=== PATIENT | male | born 1950 | race Caucasian/White ===

== ENCOUNTER 2017-03-25 15:44 | Emergency (ER) | payer OTHER, MEDICARE ==
[~2017-03-25] VITALS: Ht 182.9 cm; Wt 92.0 kg
[~2017-03-25 15:44] MED LIST: ASCORBIC ACID100 MG PO; B COMPLEX #11 EACH PO; FISH OIL500 MG PO; GLUCOSAMINE CH1 EAC2 PO; MAGNESIUM250 MG PO; NAPROSYN500 MG PO; ULTRAM50 MG PO
[2017-03-25 18:14] LABS: HEMATOCRIT 38.4 % (38.0-50.0); MCH 26.1 PG (29.0-34.0); MCHC 31.8 G/DL (30.0-36.0); MCV 82.1 FL (86-99); PLATELET COUNT 250 K/uL (156-360); RBC DIS.WIDTH-CV 14.7 % (11.8-14.6); RBC DIS.WIDTH-SD 44.4 % (39-53); RED BLOOD COUNT 4.68 M/uL (4.00-5.50); WHITE BLOOD COUNT 7.6 K/uL (4.1-10.2)
[2017-03-25 18:21] LABS: INTER. NORMALIZED RATIO 2.4; PROTHROMBIN TIME 27.7 SEC (10.2-12.9)
[2017-03-25 20:06] VITALS: BP 125/80
== END 2017-03-25 20:06 | disposition home or self-care (01) ==
LOC: EME 15:44
PROVIDERS: Emergency Medicine
PROC: 0HQLXZZ Repair Left Lower Leg Skin, External Approach (ICD-10-PCS; principal; 2017-03-25)
DX: S81.832A Puncture wound without foreign body, left lower leg, initial encounter (principal); D68.9 Coagulation defect, unspecified; X58.XXXA Exposure to other specified factors, initial encounter; I48.91 Unspecified atrial fibrillation; Z79.01 Long term (current) use of anticoagulants; I10 Essential (primary) hypertension; I25.2 Old myocardial infarction; Z95.0 Presence of cardiac pacemaker
CPT/HCPCS: 85027; 85610; 99281; 99284